=== PATIENT | female | born 1995 | race Caucasian/White ===

== ENCOUNTER → 2017-08-11 | Outpatient (CLI) | payer BC ==
--- NOTE | 2017-08-12 07:39 | US ---
EXAMINATION TYPE: US thyroid st tissue head/neck DATE OF EXAM: 08/11/2017 COMPARISON: NONE CLINICAL HISTORY: E04.1 Non toxic Single Thyroid Nodule. Thyroid nodule GLAND SIZE: Right Lobe: 5.9 x 2.9 x 3.2 cm Overall Parenchyma: heterogenous Left Lobe: 5.6 x 1.6 x 1.6 cm Overall Parenchyma: heterogeneous Isthmus Thickness: 0.4 cm NODULES RIGHT: # of nodules measured on right: 1 1. 3.8 X 2.5 x 2.9 cm hypoechoic mixed nodule at the mid pole with well-defined margins. This nodul e is wider than tall and shows intranodular vascularity. Prior size: no previous LEFT: # of nodules measured on left: 0 ISTHMUS: # of nodules measured in the isthmus: 0 Bilateral neck scanned, no evidence of lymphadenopathy. IMPRESSION: 1. Thyroid glandular enlargement. 2. Large nonspecific nodule right thyroid lobe. Consider tissue diagnosis.
== END | disposition home or self-care (01) ==
LOC: RADUSWWP 16:15
PROVIDERS: ATTEND Internal Medicine Geriatric Medicine
DX: E04.1 Nontoxic single thyroid nodule (principal)
CPT/HCPCS: 76536

== ENCOUNTER 2017-11-23 02:22 | Emergency (ER) | payer BC ==
[2017-11-23] MEDS ORDERED: ONDANSETRON 4 MG/2 ML VIAL IVP STA (02:47)
[2017-11-23] MEDS ORDERED: SODIUM CHLORIDE 0.9% 500 ML IV ONE (02:47)
[2017-11-23] MEDS ORDERED: KETOROLAC 30 MG/ML 1 ML VIAL IVP STA (02:47)
--- NOTE | 2017-11-23 02:48 | ED ---
General Adult HPI - General Chief complaint: Abdominal Pain Stated complaint: Abd pain Time Seen by Provider: 11/23/17 02:30 Source: patient, RN notes reviewed, old records reviewed Mode of arrival: ambulatory Limitations: no limitations - History of Present Illness Initial comments: 22-year-old female presents for evaluation of bilateral upper abdominal pain which began approximately 5 hours prior to presentation. Patient does have history of chronic abdominal pain. She has history of IBS. She states her symptoms today are dissimilar from her normal chronic abdominal pain. She did have one episode of vomiting which she describes as yellow, no blood. No diarrhea. Last bowel movement was several days ago. She has been passing gas normally. She does have history of constipation and going several days between bowel movements is normal. Denies fever or chills. She states the pain came on relatively suddenly. Describes it as severe, constant pain. - Related Data Home Medications Medication Instructions Recorded Confirmed Norethindrone-E.estradiol-Iron 1 each PO 11/23/17 11/23/17 [Junel Fe 1 mg-20 Mcg Tablet] metFORMIN HCL [Glucophage] 500 mg PO BID 11/23/17 11/23/17 Previous Rx's Medication Instructions Recorded Ondansetron Odt [Zofran Odt] 4 mg PO Q8HR PRN #10 tab 11/23/17 Polyethylene Glycol 3350 [Miralax] 17 gm PO DAILY #527 gm 11/23/17 Allergies Allergy/AdvReac Type Severity Reaction Status Date / Time nickel Allergy Unknown Verified 11/23/17 02:28 Review of Systems ROS Statement: Those systems with pertinent positive or pertinent negative responses have been documented in the HPI. ROS Other: All systems not noted in ROS Statement are negative. Past Medical History Additional Past Medical History / Comment(s): Chronic abdominal pain, IBS History of Any Multi-Drug Resistant Organisms: None Reported Past Surgical History: Cholecystectomy, Orthopedic Surgery, Tonsillectomy Past Psychological History: No Psychological Hx Reported Smoking Status: Never smoker Past Alcohol Use History: None Reported Past Drug Use History: Marijuana General Exam Limitations: no limitations General appearance: alert, in no apparent distress Head exam: Present: atraumatic, normocephalic Eye exam: Present: normal appearance, PERRL, EOMI ENT exam: Present: normal exam Neck exam: Present: normal inspection. Absent: tenderness, meningismus Respiratory exam: Present: normal lung sounds bilaterally, respiratory distress Cardiovascular Exam: Present: regular rate, normal rhythm GI/Abdominal exam: Present: soft, diminished bowel sounds. Absent: distended, tenderness, guarding, rebound Extremities exam: Present: normal inspection, normal capillary refill. Absent: pedal edema Neurological exam: Present: alert, oriented X3, CN II-XII intact. Absent: motor sensory deficit Psychiatric exam: Present: normal affect, normal mood Skin exam: Present: warm, dry, intact. Absent: cyanosis, diaphoretic Course Vital Signs 11/23/17 02:24 Temperature 97.7 F Pulse Rate 91 Respiratory 20 Rate Blood Pressure 139/96 O2 Sat by Pulse 98 Oximetry Medical Decision Making - Medical Decision Making 22-year-old female with bilateral upper abdominal pain and vomiting. Patient is given Zofran, observed in the emergency Department with no episodes of vomiting. She has nontender abdominal exam, no rebound or guarding. Stable vital signs. Laboratory studies reveal white blood cell count 17.8 which is likely reactive. Urinalysis clear. CMP within normal limits. X-rays obtained , negative for obstruction or free air. On reevaluation, patient is feeling better. I did have a discussion about dietary changes with the patient. She will be discharged home, with strict return parameters. - Lab Data Result diagrams: 11/23/17 02:44 11/23/17 02:44 Lab Results 11/23/17 11/23/17 11/23/17 Range/Units 02:44 02:44 02:44 WBC 17.8 H (4.0-11.0) k/uL RBC 5.16 (3.80-5.40) m/uL Hgb 12.6 (11.4-16.0) gm/dL Hct 39.4 (34.0-46.0) % MCV 76.4 L (80.0-100.0) fL MCH 24.4 L (25.0-35.0) pg MCHC 31.9 (31.0-37.0) g/dL RDW 14.4 (11.5-15.5) % Plt Count 363 (150-450) k/uL Neutrophils % 75 % Lymphocytes % 18 % Monocytes % 4 % Eosinophils % 1 % Basophils % 1 % Neutrophils # 13.4 H (1.3-7.7) k/uL Lymphocytes # 3.3 (1.0-4.8) k/uL Monocytes # 0.7 (0-1.0) k/uL Eosinophils # 0.2 (0-0.7) k/uL Basophils # 0.1 (0-0.2) k/uL Microcytosis Slight Sodium 143 (137-145) mmol/L Potassium 4.0 (3.5-5.1) mmol/L Chloride 104 (98-107) mmol/L Carbon Dioxide 24 (22-30) mmol/L Anion Gap 15 mmol/L BUN 10 (7-17) mg/dL Creatinine 0.60 (0.52-1.04) mg/dL Est GFR (CKD-EPI)AfAm >90 (>60 ml/min/1.73 sqM) Est GFR (CKD-EPI)NonAf >90 (>60 ml/min/1.73 sqM) Glucose 97 (74-99) mg/dL Plasma Lactic Acid Anup 1.0 (0.7-2.0) mmol/L Calcium 9.6 (8.4-10.2) mg/dL Total Bilirubin 0.5 (0.2-1.3) mg/dL AST 26 (14-36) U/L ALT 21 (9-52) U/L Alkaline Phosphatase 47 (38-126) U/L Total Protein 7.6 (6.3-8.2) g/dL Albumin 4.4 (3.5-5.0) g/dL Amylase 70 (30-110) U/L Lipase 153 (23-300) U/L Urine Color Urine Appearance (Clear) Urine pH (5.0-8.0) Ur Specific [place] (1.001-1.035) Urine Protein (Negative) Urine Glucose (UA) (Negative) Urine Ketones (Negative) Urine Blood (Negative) Urine Nitrite (Negative) Urine Bilirubin (Negative) Urine Urobilinogen (<2.0) mg/dL Ur Leukocyte Esterase (Negative) Urine HCG, Qual (Not Detectd) 11/23/17 11/23/17 Range/Units 02:44 02:44 WBC (4.0-11.0) k/uL RBC (3.80-5.40) m/uL Hgb (11.4-16.0) gm/dL Hct (34.0-46.0) % MCV (80.0-100.0) fL MCH (25.0-35.0) pg MCHC (31.0-37.0) g/dL RDW (11.5-15.5) % Plt Count (150-450) k/uL Neutrophils % % Lymphocytes % % Monocytes % % Eosinophils % % Basophils % % Neutrophils # (1.3-7.7) k/uL Lymphocytes # (1.0-4.8) k/uL Monocytes # (0-1.0) k/uL Eosinophils # (0-0.7) k/uL Basophils # (0-0.2) k/uL Microcytosis Sodium (137-145) mmol/L Potassium (3.5-5.1) mmol/L Chloride (98-107) mmol/L Carbon Dioxide (22-30) mmol/L Anion Gap mmol/L BUN (7-17) mg/dL Creatinine (0.52-1.04) mg/dL Est GFR (CKD-EPI)AfAm (>60 ml/min/1.73 sqM) Est GFR (CKD-EPI)NonAf (>60 ml/min/1.73 sqM) Glucose (74-99) mg/dL Plasma Lactic Acid Anup (0.7-2.0) mmol/L Calcium (8.4-10.2) mg/dL Total Bilirubin (0.2-1.3) mg/dL AST (14-36) U/L ALT (9-52) U/L Alkaline Phosphatase (38-126) U/L Total Protein (6.3-8.2) g/dL Albumin (3.5-5.0) g/dL Amylase (30-110) U/L Lipase (23-300) U/L Urine Color Yellow Urine Appearance Clear (Clear) Urine pH 5.5 (5.0-8.0) Ur Specific [place] 1.027 (1.001-1.035) Urine Protein Trace H (Negative) Urine Glucose (UA) Negative (Negative) Urine Ketones Negative (Negative) Urine Blood Negative (Negative) Urine Nitrite Negative (Negative) Urine Bilirubin Negative (Negative) Urine Urobilinogen <2.0 (<2.0) mg/dL Ur Leukocyte Esterase Negative (Negative) Urine HCG, Qual Not Detected (Not Detectd) Disposition Clinical Impression: Abdominal pain Disposition: HOME SELF-CARE Condition: Good Instructions: Abdominal Pain (ED), Acute Nausea and Vomiting (ED) Prescriptions: Ondansetron Odt [Zofran Odt] 4 mg PO Q8HR PRN #10 tab PRN Reason: Vomiting Polyethylene Glycol 3350 [Miralax] 17 gm PO DAILY #527 gm Is patient prescribed a controlled substance at d/c from ED?: No Referrals: Alexa Ramirez MD [Primary Care Provider] - 1-2 days Time of Disposition: 04:11
[2017-11-23 03:03] LABS: Appearance,Urine Clear (Clear); Bilirubin,Urine Negative (Negative); Blood,Urine Negative (Negative); Color,Urine Yellow; Glucose,Urine (UA) Negative (Negative); Ketones,Urine Negative (Negative); Leukocyte Esterase,Urine Negative (Negative); Nitrite,Urine Negative (Negative); PH, Urine 5.5 (5.0-8.0); Protein,Urine Trace (Negative); Specific Gravity,Urine 1.027 (1.001-1.035); Urobilinogen,Urine <2.0 mg/dL (<2.0)
[2017-11-23 03:07] LABS: Basophils # (A) 0.1 k/uL (0-0.2); Basophils % (A) 1 %; Eosinophils # (A) 0.2 k/uL (0-0.7); Eosinophils % (A) 1 %; HCT 39.4 % (34.0-46.0); HGB 12.6 gm/dL (11.4-16.0); Lymphocytes # (A) 3.3 k/uL (1.0-4.8); Lymphocytes % (A) 18 %; MCH 24.4 pg (25.0-35.0); MCHC 31.9 g/dL (31.0-37.0); MCV 76.4 fL (80.0-100.0); Mean Platelet Volume 6.2; Microcytosis Slight; Monocytes # (A) 0.7 k/uL (0-1.0); Monocytes % (A) 4 %; Neutrophils # (A) 13.4 k/uL (1.3-7.7); Neutrophils % (A) 75 %; Platelet Count 363 k/uL (150-450); RBC 5.16 m/uL (3.80-5.40); RDW 14.4 % (11.5-15.5); WBC 17.8 k/uL (4.0-11.0)
[2017-11-23 03:13] LABS: ALT 21 U/L (9-52); AST 26 U/L (14-36); Albumin 4.4 g/dL (3.5-5.0); Alkaline Phosphatase 47 U/L (38-126); Amylase 70 U/L (30-110); Anion Gap 15 mmol/L; Blood Urea Nitrogen 10 mg/dL (7-17); Calcium 9.6 mg/dL (8.4-10.2); Carbon Dioxide 24 mmol/L (22-30); Chloride 104 mmol/L (98-107); Glucose 97 mg/dL (74-99); Lipase 153 U/L (23-300); Sodium 143 mmol/L (137-145); Total Bilirubin 0.5 mg/dL (0.2-1.3); Total Protein 7.6 g/dL (6.3-8.2)
--- NOTE | 2017-11-23 03:22 | XR ---
EXAMINATION TYPE: XR KUB DATE OF EXAM: 11/23/2017 COMPARISON: NONE HISTORY: Flank pain TECHNIQUE: 2 views FINDINGS: There is no sign of intestinal obstruction or pneumoperitoneum. Fecal pattern is normal. Th ere are no pathologic calcifications over the kidneys. There are clips from cholecystectomy. There is no evidence of a mass. Lung bases are clear. IMPRESSION: Nonacute abdomen. There is a slight lumbar levoscoliosis.
[2017-11-23 04:21] VITALS: BP 138/67; PULSE 78; RESP 18; TEMP 99
== END 2017-11-23 04:21 | disposition home or self-care (01) ==
LOC: EC 02:22
DX: R10.11 Right upper quadrant pain (principal); R10.12 Left upper quadrant pain; Z91.09 Other allergy status, other than to drugs and biological substances; Z79.84 Long term (current) use of oral hypoglycemic drugs; Z79.3 Long term (current) use of hormonal contraceptives; Z90.49 Acquired absence of other specified parts of digestive tract
CPT/HCPCS: 36415; 80053; 82150; 83605; 83690; 85025; 81003; 81025; 74018; 99284; 96374; 96375; J2405; J1885

== ENCOUNTER 2017-11-24 21:05 | Emergency (ER) | payer BC ==
[2017-11-25] MEDS ORDERED: SODIUM CHLORIDE 0.9% 1,000 ML IV STA (00:16)
--- NOTE | 2017-11-25 00:18 | ED ---
General Adult HPI - General Chief complaint: Abdominal Pain Stated complaint: abdominal pain Time Seen by Provider: 11/25/17 00:08 Source: patient, RN notes reviewed Mode of arrival: ambulatory Limitations: no limitations - History of Present Illness Initial comments: Patient's 22-year-old female presenting to the emergency room today with a chief complaint of abdominal pain over the last 2 days per patient states that it started 2 days ago. She resides in the upper abdomen. She states that she' s had a decreased appetite. It has nausea vomiting initially with that. She states she does suffer from chronic abdominal pain but this does feel different to her. She does admit that she was seen in here in the ER for this 2 days ago. She states that symptoms are not improving. Patient denies any other associated symptoms or complaints. Patient omits that history of cholecystectomy. Patient denies any recent fever, chills, shortness of breath, chest pain, back pain, numbness or tingling, dysuria or hematuria, constipation or diarrhea, headaches or visual changes, or any other complaints. - Related Data Home Medications Medication Instructions Recorded Confirmed Norethindrone-E.estradiol-Iron 1 each PO 11/23/17 11/23/17 [Junel Fe 1 mg-20 Mcg Tablet] metFORMIN HCL [Glucophage] 500 mg PO BID 11/23/17 11/23/17 Previous Rx's Medication Instructions Recorded Ondansetron Odt [Zofran Odt] 4 mg PO Q8HR PRN #10 tab 11/23/17 Polyethylene Glycol 3350 [Miralax] 17 gm PO DAILY #527 gm 11/23/17 Allergies Allergy/AdvReac Type Severity Reaction Status Date / Time nickel Allergy Unknown Verified 11/24/17 21:41 Review of Systems ROS Statement: Those systems with pertinent positive or pertinent negative responses have been documented in the HPI. ROS Other: All systems not noted in ROS Statement are negative. Past Medical History Past Medical History: No Reported History Additional Past Medical History / Comment(s): Chronic abdominal pain, IBS History of Any Multi-Drug Resistant Organisms: None Reported Past Surgical History: Cholecystectomy, Orthopedic Surgery, Tonsillectomy Past Psychological History: No Psychological Hx Reported Smoking Status: Never smoker Past Alcohol Use History: None Reported Past Drug Use History: Marijuana General Exam - General Exam Comments Initial Comments: General: The patient is awake and alert, in no distress, and does not appear acutely ill. Eye: Pupils are equal, round and reactive to light, extra-ocular movements are intact. No nystagmus. There is normal conjunctiva bilaterally. No signs of icterus. Ears, nose, mouth and throat: There are moist mucous membranes and no oral lesions. Neck: The neck is supple, there is no tenderness or JVD. Cardiovascular: There is a regular rate and rhythm. No murmur, rub or gallop is appreciated. Respiratory: Lungs are clear to auscultation, respirations are non-labored, breath sounds are equal. No wheezes, stridor, rales, or rhonchi. Gastrointestinal: Abdomen soft on palpation. Patient does have tenderness right lower quadrant. No rebound tenderness. No guarding. No CVA tenderness. Musculoskeletal: Normal ROM, no tenderness. Strength 5/5. Sensation intact. Pulses equal bilaterally 2+. Neurological: A&O x 3. CN II-XII intact, There are no obvious motor or sensory deficits. Coordination appears grossly intact. Speech is normal. Skin: Skin is warm and dry and no rashes or lesions are noted. Psychiatric: Cooperative, appropriate mood & affect, normal judgment. Limitations: no limitations Course Vital Signs 11/24/17 21:38 Temperature 97.4 F L Pulse Rate 87 Respiratory 20 Rate Blood Pressure 125/75 O2 Sat by Pulse 98 Oximetry Medical Decision Making - Medical Decision Making Patient reexamined at this time shows no signs of distress. Patient's labs been reviewed unremarkable. Negative lactic acid. Patient's CT of the abdomen and pelvis shows a normal appendix. Shows no acute abnormality. Results were discussed with the patient. Patient will be discharged home follow-up family physician. - Lab Data Result diagrams: 11/25/17 00:32 11/25/17 00:32 Lab Results 11/25/17 11/25/17 11/25/17 Range/Units 00:32 00:32 00:32 WBC 8.3 (4.0-11.0) k/uL RBC 4.62 (3.80-5.40) m/uL Hgb 11.0 L (11.4-16.0) gm/dL Hct 35.3 (34.0-46.0) % MCV 76.3 L (80.0-100.0) fL MCH 23.9 L (25.0-35.0) pg MCHC 31.3 (31.0-37.0) g/dL RDW 14.7 (11.5-15.5) % Plt Count 298 (150-450) k/uL Neutrophils % 55 % Lymphocytes % 35 % Monocytes % 5 % Eosinophils % 3 % Basophils % 0 % Neutrophils # 4.6 (1.3-7.7) k/uL Lymphocytes # 2.9 (1.0-4.8) k/uL Monocytes # 0.4 (0-1.0) k/uL Eosinophils # 0.2 (0-0.7) k/uL Basophils # 0.0 (0-0.2) k/uL Microcytosis Slight Sodium 142 (137-145) mmol/L Potassium 4.0 (3.5-5.1) mmol/L Chloride 105 (98-107) mmol/L Carbon Dioxide 24 (22-30) mmol/L Anion Gap 13 mmol/L BUN 5 L (7-17) mg/dL Creatinine 0.50 L (0.52-1.04) mg/dL Est GFR (CKD-EPI)AfAm >90 (>60 ml/min/1.73 sqM) Est GFR (CKD-EPI)NonAf >90 (>60 ml/min/1.73 sqM) Glucose 118 H (74-99) mg/dL Plasma Lactic Acid Anup (0.7-2.0) mmol/L Calcium 9.1 (8.4-10.2) mg/dL Total Bilirubin 0.2 (0.2-1.3) mg/dL AST 17 (14-36) U/L ALT 13 (9-52) U/L Alkaline Phosphatase 40 (38-126) U/L Total Protein 6.5 (6.3-8.2) g/dL Albumin 3.9 (3.5-5.0) g/dL Amylase 58 (30-110) U/L Lipase 123 (23-300) U/L Urine Color Urine Appearance (Clear) Urine pH (5.0-8.0) Ur Specific [place] (1.001-1.035) Urine Protein (Negative) Urine Glucose (UA) (Negative) Urine Ketones (Negative) Urine Blood (Negative) Urine Nitrite (Negative) Urine Bilirubin (Negative) Urine Urobilinogen (<2.0) mg/dL Ur Leukocyte Esterase (Negative) Urine HCG, Qual Not Detected (Not Detectd) 11/25/17 11/25/17 Range/Units 00:32 00:32 WBC (4.0-11.0) k/uL RBC (3.80-5.40) m/uL Hgb (11.4-16.0) gm/dL Hct (34.0-46.0) % MCV (80.0-100.0) fL MCH (25.0-35.0) pg MCHC (31.0-37.0) g/dL RDW (11.5-15.5) % Plt Count (150-450) k/uL Neutrophils % % Lymphocytes % % Monocytes % % Eosinophils % % Basophils % % Neutrophils # (1.3-7.7) k/uL Lymphocytes # (1.0-4.8) k/uL Monocytes # (0-1.0) k/uL Eosinophils # (0-0.7) k/uL Basophils # (0-0.2) k/uL Microcytosis Sodium (137-145) mmol/L Potassium (3.5-5.1) mmol/L Chloride (98-107) mmol/L Carbon Dioxide (22-30) mmol/L Anion Gap mmol/L BUN (7-17) mg/dL Creatinine (0.52-1.04) mg/dL Est GFR (CKD-EPI)AfAm (>60 ml/min/1.73 sqM) Est GFR (CKD-EPI)NonAf (>60 ml/min/1.73 sqM) Glucose (74-99) mg/dL Plasma Lactic Acid Anup 1.3 (0.7-2.0) mmol/L Calcium (8.4-10.2) mg/dL Total Bilirubin (0.2-1.3) mg/dL AST (14-36) U/L ALT (9-52) U/L Alkaline Phosphatase (38-126) U/L Total Protein (6.3-8.2) g/dL Albumin (3.5-5.0) g/dL Amylase (30-110) U/L Lipase (23-300) U/L Urine Color Yellow Urine Appearance Clear (Clear) Urine pH 7.0 (5.0-8.0) Ur Specific [place] 1.019 (1.001-1.035) Urine Protein Negative (Negative) Urine Glucose (UA) Negative (Negative) Urine Ketones Negative (Negative) Urine Blood Negative (Negative) Urine Nitrite Negative (Negative) Urine Bilirubin Negative (Negative) Urine Urobilinogen 2.0 (<2.0) mg/dL Ur Leukocyte Esterase Negative (Negative) Urine HCG, Qual (Not Detectd) Disposition Clinical Impression: Abdominal pain Disposition: HOME SELF-CARE Condition: Good Instructions: Abdominal Pain (ED) Additional Instructions: Please use medication as discussed. Please follow-up with family doctor in the next 2 days of symptoms have not improved. Please return to emergency room if the symptoms increase or worsen or for any other concerns. Is patient prescribed a controlled substance at d/c from ED?: No Referrals: Alexa Ramirez MD [Primary Care Provider] - 1-2 days Time of Disposition: 02:27
[2017-11-25 00:45] LABS: Appearance,Urine Clear (Clear); Bilirubin,Urine Negative (Negative); Blood,Urine Negative (Negative); Color,Urine Yellow; Glucose,Urine (UA) Negative (Negative); Ketones,Urine Negative (Negative); Leukocyte Esterase,Urine Negative (Negative); Nitrite,Urine Negative (Negative); Protein,Urine Negative (Negative); Specific Gravity,Urine 1.019 (1.001-1.035)
[2017-11-25 00:46] LABS: Basophils % (A) 0 %; Eosinophils # (A) 0.2 k/uL (0-0.7); Eosinophils % (A) 3 %; HCT 35.3 % (34.0-46.0); Lymphocytes # (A) 2.9 k/uL (1.0-4.8); Lymphocytes % (A) 35 %; MCH 23.9 pg (25.0-35.0); MCHC 31.3 g/dL (31.0-37.0); MCV 76.3 fL (80.0-100.0); Mean Platelet Volume 6.6; Microcytosis Slight; Monocytes # (A) 0.4 k/uL (0-1.0); Monocytes % (A) 5 %; Neutrophils # (A) 4.6 k/uL (1.3-7.7); Neutrophils % (A) 55 %; Platelet Count 298 k/uL (150-450); RBC 4.62 m/uL (3.80-5.40); RDW 14.7 % (11.5-15.5); WBC 8.3 k/uL (4.0-11.0)
[2017-11-25 00:55] LABS: ALT 13 U/L (9-52); AST 17 U/L (14-36); Albumin 3.9 g/dL (3.5-5.0); Alkaline Phosphatase 40 U/L (38-126); Amylase 58 U/L (30-110); Anion Gap 13 mmol/L; Blood Urea Nitrogen 5 mg/dL (7-17); Calcium 9.1 mg/dL (8.4-10.2); Carbon Dioxide 24 mmol/L (22-30); Chloride 105 mmol/L (98-107); Glucose 118 mg/dL (74-99); Lipase 123 U/L (23-300); Sodium 142 mmol/L (137-145); Total Bilirubin 0.2 mg/dL (0.2-1.3); Total Protein 6.5 g/dL (6.3-8.2)
[2017-11-25] MEDS ORDERED: RX INFO: IV CONTRAST WAS GIVEN 1 EACH MISC MISCELLANE PRN (01:03)
--- NOTE | 2017-11-25 01:53 | CT ---
EXAMINATION TYPE: CT abdomen pelvis w con DATE OF EXAM: 11/25/2017 COMPARISON: 06/22/2014 HISTORY: gen abd pain for 2 days, hx of cholecystectomy CT DLP: 1610.00 mGycm Automated exposure control for dose reduction was used. TECHNIQUE: Helical acquisition of images was performed from the lung bases through the pelvis. CONTRAST: Performed without Oral Contrast and with IV Contrast, patient injected with 100 mL of Isovue 300. FINDINGS: Lung bases are clear. There is no pleural effusion. Heart size is normal. Liver spleen pancreas appear normal. There are clips from cholecystectomy. Bile ducts are not dilated . There is a 2.2 cm enlarged lymph node near the gastric fundus. This is adjacent to the abdominal aort a. There is no adrenal mass. Kidneys show satisfactory contrast opacification. There is no hydronephrosi s. There is no retroperitoneal adenopathy. Appendix appears normal. I see no intestinal wall thickeni ng. There are no dilated loops. There is a small amount of free fluid in the pelvis. Bladder distends smoothly. Uterus is anteverted. There is no sign of a pelvic mass. I see no bony destructive process . IMPRESSION: THERE IS A SMALL AMOUNT OF FREE FLUID IN THE PELVIS WHICH IS NONSPECIFIC. NORMAL UTERUS. NO PELVIC MA SS SEEN. NORMAL APPENDIX. THERE IS AN OVAL-SHAPED DENSITY ADJACENT TO THE ABDOMINAL AORTA THAT IS PRO BABLY AN ENLARGED LYMPH NODE THAT IS STABLE COMPARED TO OLD CT SCAN. THIS IS OF UNCERTAIN SIGNIFICANC E. NO OTHER ADENOPATHY IS SEEN. APPENDIX.
[2017-11-25 02:40] VITALS: BP 130/70; PULSE 68; RESP 18; TEMP 98
== END 2017-11-25 02:39 | disposition home or self-care (01) ==
LOC: EC 21:05
DX: R10.31 Right lower quadrant pain (principal); R11.2 Nausea with vomiting, unspecified; Z91.09 Other allergy status, other than to drugs and biological substances; Z79.3 Long term (current) use of hormonal contraceptives; Z79.84 Long term (current) use of oral hypoglycemic drugs; Z90.49 Acquired absence of other specified parts of digestive tract
CPT/HCPCS: 36415; 80053; 82150; 83605; 83690; 85025; 81003; 81025; 74177; 99284; 96360; 96361; Q9967